=== PATIENT | male | born 1940 | race Caucasian/White ===

== ENCOUNTER 2020-05-15 13:45 | Inpatient (IN) | payer MEDICARE, BC ==
[2020-05-15] VITALS (12 sets, daily range): BP systolic 132–176; BP diastolic 61–83
[~2020-05-15] VITALS: Ht 182.8 cm; Wt 113.4 kg
[2020-05-15 14:29] LABS: BASO % 0.1 % (0.0-1.0); EOS # 0.1 10*3/uL (0.0-0.4); EOS % 0.6 % (1.0-4.0); HEMATOCRIT 37.1 % (42.0-52.0); LYMPH # 0.6 10*3/uL (1.3-4.4); LYMPH % 6.1 % (27.0-41.0); MEAN CELL VOLUME 93.7 fl (80.0-94.0); MEAN CORPUSCULAR HGB 30.6 pg (27.0-31.0); MEAN CORPUSCULAR HGB CONC 32.6 g/dl (33.0-37.0); MEAN PLATELET VOLUME 10.6 fl (9.6-12.3); MONO # 0.9 10*3/uL (0.1-1.0); MONO % 9.8 % (3.0-9.0); NEUT # 7.8 10*3/uL (2.3-7.9); NEUT % 82.1 % (47.0-73.0); PLATELET COUNT AUTOMATED 278 10*3/uL (130-400); RED BLOOD COUNT 3.96 10*6/uL (4.50-5.90); RED CELL DISTRI WIDTH 13.2 % (0-14.5); WHITE BLOOD COUNT 9.5 10*3/uL (4.8-10.8)
[2020-05-15 14:38] LABS: ACT PARTIAL THROMBO TIME 23.4 SECONDS (20.0-32.1); INTERNATIONAL NORM RATIO 0.9 (2.0-3.5)
[2020-05-15 14:44] LABS: ALBUMIN 2.3 gm/dl (3.1-4.5); ALKALINE PHOSPHATASE 70 U/L (45-117); BUN 77 mg/dl (7-24); CHLORIDE 109 mmol/L (98-107); CREATININE 3.08 mg/dL (0.70-1.30); POTASSIUM 4.1 mmol/L (3.5-5.1); SGOT/AST 15 IU/L (3-35); SGPT/ALT 20 U/L (12-78); SODIUM 144 mmol/L (136-145); TOTAL PROTEIN 6.5 gm/dL (6.4-8.2)
[2020-05-15 14:45] LABS: TROPONIN I < 0.015 ng/ml (<0.045)
--- NOTE | 2020-05-15 17:06 | NUR ---
PT SITTING UP IN BED, RESPS EASY.
--- NOTE | 2020-05-15 17:52 | NUR ---
PT GOT OUT OF BED TO BATHROOM, VERY WINDED WITH THE EXERTION. PLACED BACK ONTO O2 NC.
--- NOTE | 2020-05-15 21:00 | NUR ---
GAVE PATIENT URINAL IN ORDER TO OBTAIN URINE SPECIMEN. PATIENT UNABLE TO VOID AT THIS TIME.
--- NOTE | 2020-05-15 22:00 | NUR ---
PATIENT PULLED IV OUT OF HAND. WILL CONTINUE TO MONITOR. TRYING TO GET ANOTHER SITE IN AT THIS TIME.
--- NOTE | 2020-05-15 23:18 | NUR ---
PT. C/O HEADACHE AT THIS TIME. GAVE TYLENOL 650MG. WILL CONTINUE TO MONITOR.
[2020-05-16] VITALS (8 sets, daily range): BP systolic 148–169; BP diastolic 58–103
--- NOTE | 2020-05-16 00:21 | NUR ---
PATIENT PULLED OUT IV AGAIN FOR L CHEST AREA. TRYING TO GET ANOTHER IV IN AT THIS TIME. WILL CONTINUE TO MONITOR.
--- NOTE | 2020-05-16 01:55 | NUR ---
STILL UNABLE TO OBTAIN URINE SPECIMEN AT THIS TIME.
--- NOTE | 2020-05-16 03:26 | NUR ---
PT RESTING IN BED. WAS GIVEN SOME WATER AND LIGHTS TURNED OFF. NO ACUTE DISTRESS AT THIS TIME. CALL LIGHT WITHIN REACH
[2020-05-16 05:18] LABS: ACT PARTIAL THROMBO TIME 58.7 SECONDS (20.0-32.1)
[2020-05-16 05:26] LABS: ALBUMIN 2.4 gm/dl (3.1-4.5); CREATININE 2.88 mg/dL (0.70-1.30); POTASSIUM 4.9 mmol/L (3.5-5.1); TOTAL PROTEIN 7.1 gm/dL (6.4-8.2)
--- NOTE | 2020-05-16 05:37 | NUR ---
PT WAS FOUND SITTING ON CHAIR IN ROOM AND HAD PULLED IV OUT FOR THE THIRD TIME. PT DOES NOT KNOW WHY HE IS PULLING IVS OUT. PT WAS REPOSITIONED IN BED AND ANOTHER IV WAS PLACED IN HIS RIGHT AC AND WRAPPED WITH KERLIX. PT WAS CLEANED UP AND HAD NEW GOWN PLACED. PT WHILE SITTING WAS 79-82% ON RA SINCE HE HAD TAKEN 02 OUT. PT WAS PUT ON 6L NC AND HIS 02 FELIX TO 89%. PT THEN WAS PLACED ON A NRB 14L AND O2 FELIX TO 98%. AFTER A FEW MINUTES PT WAS PLACED BACK ON 4L NC AND IS SITTING AT 95-96%. PT IN BED WITH SIDERAILS UP X2 AND CALL LIGHT WITHIN REACH.
--- NOTE | 2020-05-16 05:42 | NUR ---
PT DRANK 500CC OF WATER. UP IN BED AND ASKING FOR SOME MORE WATER. STATES HE FEELS PRETTY GOOD. NO ACUTE DISTRESS
[2020-05-16 06:08] LABS: HEMATOCRIT 43.4 % (42.0-52.0); MEAN CELL VOLUME 96.2 fl (80.0-94.0); MEAN CORPUSCULAR HGB 29.9 pg (27.0-31.0); MEAN CORPUSCULAR HGB CONC 31.1 g/dl (33.0-37.0); MEAN PLATELET VOLUME 11.2 fl (9.6-12.3); PLATELET COUNT AUTOMATED 311 10*3/uL (130-400); RED BLOOD COUNT 4.51 10*6/uL (4.50-5.90); RED CELL DISTRI WIDTH 13.2 % (0-14.5); WHITE BLOOD COUNT 9.1 10*3/uL (4.8-10.8)
[2020-05-16 06:37] LABS: PLATELET SUFFICIENCY NORMAL (NORMAL); TOTAL CELLS COUNTED 100 #CELLS
[2020-05-16 07:39] LABS: FERRITIN 1402.6 ng/mL (22.0-322.0); VITAMIN D, 25-HYDROXY 55.6 ng/mL (30-100)
--- NOTE | 2020-05-16 07:51 | NUR ---
PT RESTING QUIELTY, REPORTS HE IS FEELING BETTER, VERY TIRED BUT BETTER. STATES HE JUST WANTS TO GO HOME TODAY. POX 96% 4L NC, PT TITRATED DOWN TO 2L. BREAKFAST TRAY ORDERED. PT HAS NO COMPLAINTS. CALL LIGHT IN REACH.
--- NOTE | 2020-05-16 08:34 | NUR ---
PT CONTINUTES TO WANT TO LEAVE. P EXPLAINED TO THE PT THAT HE IS REQUIRING OXYGEN TO BREATH. STATES " I CAN BREATH AT HOME". PT INSTRUCTED TO WAIT FOR HIS PHYSICIAN TO ROUND AND HE CAN DISCUSS GOING HOME AT THAT TIME. PT WAS AGREEABLE. POX 93% 3L.
--- NOTE | 2020-05-16 09:30 | NUR ---
NOTIFIED DR BLACK OF CONSULT, RENAL US ORDERED. PT WAS PROVEDED A URINAL FOR URINE COLLECTION.
--- NOTE | 2020-05-16 10:00 | NUR ---
PT DOOR REMAINS CLOSED DUE TO COVID PRECAUTIONS, UPON RE ENTERING THE ROOM, PT SITTING ON THE SIDE OF THE BED, HE HAD BROKE HIS IV APART THAT WAS INFUSING HEPARIN, BLOOD ALL OVER ROOM, PT HAD TO BE MOVE TO ANOTHER ROOM TO HAVE THAT ROOM CLEANED. DR ANUPAMA GORDON. PT IS AOX3. STATES HE JUST WANTS TO GO HOME, SON WAS CALLED.
--- NOTE | 2020-05-16 10:10 | NUR ---
HEPARIN ON HOLD PER DR ALTMAN.
--- NOTE | 2020-05-16 10:36 | NUR ---
DR BLACK AT THE BEDSIDE, WAS GOING TO ORDERE RENAL US BUT DECIDED NOT TO. PT RENAL LABS ARE WITHIN HIS BASLINE PER LABS FROM [facility]. DR BLACK REPORTS PT IS OK FOR DISCHARGE.
--- NOTE | 2020-05-16 10:47 | NUR ---
Import Export Manager in to talk to patient. Patient states lives at HOME with . There are 0 steps in the home. Physician: ELIJAH JORDAN [facility] health services: [facility] Patient's level of ADLs: MODERATE ASSIST Patient has working utilities: YES DME: OXYGEN, NEBULIZER ([facility]) Follow-up physician's appointment after d/c: WILL BE MADE BY RN HOSPITALIST Does patient want to access PORTAL?: NO Discharge plan : MANAGER BATTERY CONTACTED PATIENTS VIA PHONE CALL. PATIENT RESIDES AT HOME WITH . PATIENTS DAUGHTER LIVES NEAR THE PATIENT AND CHECKS IN ON THEM FREQUENTLY. PATIENT DOES WEAR OXYGEN AT HOME AND HAS A NEBULIZER FROM [facility]. PATIENTS HAS CONCERNS OVER THE PATIENT RETURNING HOME. SHE STATED IT HAS BEEN DIFFICULT TO CARE FOR HIM HE REFUSES TO LEAVE HIS OXYGEN ON AND WILL ATTEMPT TO AMBULATE AND SPO2 GOES INTO THE 70S. SHE STATED HE HAS NOT BEEN AMBULATING A WHOLE LOT. PATIENT DOES CURRENTLY HAVE [facility] BUT REFUSED PT/OT. PATIENTS WOULD LIKE FOR HIM TO RETURN HOME BUT IS OPEN FOR SNF PLACEMENT. MANAGER BATTERY EXPLAIN COVID TEST IS PENDING AND IF IT RETURNS POSITIVE ONLY LOCAL FACILITY ACCEPTING WOULD BE [facility]. PATIENTS STATED SHE WOULD WAIT AND SEE WHAT PT/OT/DOCTORS RECOMMENDS. CASE MANAGEMENT TO FOLLOW. SYLVIA BOURNE
--- NOTE | 2020-05-16 11:44 | NUR ---
PT STILL CONTINUE TO WANT TO LEAVE, DR BLACK AND DR SALOMON AT THE BEDSIDE. DR SALOMON AGEEABLW TO THE PT SIGNING OUT AMA, PT DRESSING AND D/C WITH ALL BELONINGS IN THE CARE OF HIS SON. PT WAS INSTRUCTEWD TO APPLY HIS O2 AND WEAR CONTINUOUSLY.
--- NOTE | 2020-05-16 13:41 | NUR ---
Received message from Christi at [facility]. Patient is current with them.
--- NOTE | 2020-05-17 08:55 | NUR ---
STOVE FITTER FAXED RESUMPTION ORDER TO [facility].
== END 2020-05-15 18:54 | disposition left against medical advice (07) | DRG 177 ==
LOC: ED 13:45 → EDHOLD 18:52
PROVIDERS: Emergency Medicine; Internal Medicine; ADMIT Internal Medicine; ATTEND Internal Medicine
PROC: 5A0935A Assistance with Respiratory Ventilation, Less than 24 Consecutive Hours, High Flow/Velocity Cannula (ICD-10-PCS; principal; 2020-05-15)
DX: U07.1 COVID-19 (principal); J96.01 Acute respiratory failure with hypoxia; N17.0 Acute kidney failure with tubular necrosis; J18.9 Pneumonia, unspecified organism; E43 Unspecified severe protein-calorie malnutrition; N18.4 Chronic kidney disease, stage 4 (severe); Z91.041 Radiographic dye allergy status; D72.810 Lymphocytopenia; E11.22 Type 2 diabetes mellitus with diabetic chronic kidney disease; E78.5 Hyperlipidemia, unspecified; I12.9 Hypertensive chronic kidney disease with stage 1 through stage 4 chronic kidney disease, or unspecified chronic kidney disease; E87.8 Other disorders of electrolyte and fluid balance, not elsewhere classified; E11.65 Type 2 diabetes mellitus with hyperglycemia; M10.9 Gout, unspecified; E83.41 Hypermagnesemia; Z53.29 Procedure and treatment not carried out because of patient's decision for other reasons; D64.9 Anemia, unspecified

== ENCOUNTER → 2021-04-29 | Outpatient (CLI) | payer MEDICARE, BC | END | disposition home or self-care (01) | LOC: COVID19 16:17 | PROVIDERS: ATTEND Internal Medicine | DX: Z11.52 Encounter for screening for COVID-19 (principal) ==

== ENCOUNTER → 2022-07-27 | Outpatient (CLI) | payer MEDICARE, BC | END | disposition home or self-care (01) | LOC: RESCLI 04:44 | PROVIDERS: ATTEND Internal Medicine | DX: E11.22 Type 2 diabetes mellitus with diabetic chronic kidney disease (principal); I12.9 Hypertensive chronic kidney disease with stage 1 through stage 4 chronic kidney disease, or unspecified chronic kidney disease; N18.4 Chronic kidney disease, stage 4 (severe); I48.91 Unspecified atrial fibrillation; M10.9 Gout, unspecified; J44.9 Chronic obstructive pulmonary disease, unspecified; L30.9 Dermatitis, unspecified; E78.5 Hyperlipidemia, unspecified; E55.9 Vitamin D deficiency, unspecified; R60.0 Localized edema; Z79.84 Long term (current) use of oral hypoglycemic drugs; Z79.899 Other long term (current) drug therapy; Z79.01 Long term (current) use of anticoagulants; Z79.82 Long term (current) use of aspirin; Z86.73 Personal history of transient ischemic attack (TIA), and cerebral infarction without residual deficits; Z98.890 Other specified postprocedural states; Z82.49 Family history of ischemic heart disease and other diseases of the circulatory system; Z80.42 Family history of malignant neoplasm of prostate; Z87.891 Personal history of nicotine dependence; Z91.041 Radiographic dye allergy status ==

== ENCOUNTER 2022-08-11 15:35 | Emergency (ER) | payer MEDICARE, BC ==
[~2022-08-11] VITALS: Ht 182.8 cm; Wt 99.8 kg
== END 2022-08-11 16:30 | disposition short-term general hospital (02) ==
LOC: ED 15:35
DX: S62.620A Displaced fracture of middle phalanx of right index finger, initial encounter for closed fracture (principal); S62.624A Displaced fracture of middle phalanx of right ring finger, initial encounter for closed fracture; Z91.041 Radiographic dye allergy status; W27.0XXA Contact with workbench tool, initial encounter; Y93.89 Activity, other specified; Y92.89 Other specified places as the place of occurrence of the external cause; Y99.8 Other external cause status

== ENCOUNTER 2022-11-20 15:43 | Emergency (ER) | payer MEDICARE, BC ==
[~2022-11-20] VITALS: Wt 104.3 kg
[2022-11-20] MEDS ORDERED: [UNRECOGNIZED DRUG - REMARK] T (17:46)
[2022-11-20] MEDS ORDERED: BACITRACIN3.5 GM OP (17:46)
== END 2022-11-20 17:57 | disposition home or self-care (01) ==
LOC: ED 15:43
DX: S61.011A Laceration without foreign body of right thumb without damage to nail, initial encounter (principal); I10 Essential (primary) hypertension; R73.9 Hyperglycemia, unspecified; E78.00 Pure hypercholesterolemia, unspecified; Z88.2 Allergy status to sulfonamides; Z91.041 Radiographic dye allergy status; Z86.16 Personal history of COVID-19; W31.89XA Contact with other specified machinery, initial encounter; Y93.89 Activity, other specified; Y92.89 Other specified places as the place of occurrence of the external cause; Y99.8 Other external cause status

== ENCOUNTER → 2023-08-11 | Outpatient (CLI) | payer MEDICARE, BC ==
[~2023-08-11] MED LIST: BACITRACIN3.5 GM OP; [UNRECOGNIZED DRUG - REMARK] T
== END | disposition home or self-care (01) ==
LOC: RESCLI 02:46
PROVIDERS: ATTEND Student in an Organized Health Care Education/Training Program
DX: E11.9 Type 2 diabetes mellitus without complications (principal); I48.91 Unspecified atrial fibrillation; Z79.899 Other long term (current) drug therapy